=== PATIENT | female | born 1955 | race Caucasian/White ===

== ENCOUNTER 2019-11-08 13:55 | Emergency (ER) | payer MEDICARE, SELFPAY | END 2019-11-08 15:28 | PROVIDERS: PCP Nurse Practitioner Family | DX: R69 Illness, unspecified (principal) ==

== ENCOUNTER 2020-05-14 14:59 | Outpatient (RCR) | payer MEDICARE, MEDICAID, SELFPAY | END 2020-06-10 23:59 | disposition home or self-care (01) | LOC: RT 14:59 | PROVIDERS: PCP Nurse Practitioner Family | DX: R69 Illness, unspecified (principal) | CPT/HCPCS: 93225 ==

== ENCOUNTER → 2020-11-18 10:35 | Outpatient (BNVA) | payer MEDICARE, MEDICAID, SELFPAY | PROVIDERS: PCP Nurse Practitioner Family; Referring Provider Nurse Practitioner Family; Visit Provider Internal Medicine Cardiovascular Disease ==

== ENCOUNTER 2022-02-18 10:17 | Outpatient (CLI) | payer MEDICAID, SELFPAY ==
--- NOTE | 2022-02-18 10:15 | RT.EKG_ITS ---
APPROVED REPORT Exam: Resting ECG Reason for Exam: Screening Patient Location: O HR:0 bpm ECG Measurements Heart Rate 0 AXIS ID [id number] P 0 QRSd [id number] QRS 0 QT [id number] T [id number] QTc 0 Conclusion All 12 leads are missing I have reviewed and interpreted ECG and agree with software generated inte Meenu García
== END 2022-02-18 10:18 | disposition home or self-care (01) ==
LOC: DI.KIM 10:17
PROVIDERS: PCP Nurse Practitioner Family; Visit Provider Student in an Organized Health Care Education/Training Program
DX: I48.91 Unspecified atrial fibrillation (principal)
CPT/HCPCS: 93010

== ENCOUNTER 2023-08-19 05:45 | Emergency (ER) | payer MEDICAID, SELFPAY | END 2023-08-19 06:53 | LOC: ER 05:46 | DX: Z53.29 Procedure and treatment not carried out because of patient's decision for other reasons (principal) ==